=== PATIENT | male | born 1975 | race African-American/Black ===

== ENCOUNTER 2020-03-18 04:25 | Day surgery (SDC) | payer OTHER, SELFPAY ==
[2020-03-18 05:05] LABS: #Basophils 0.1 thou/uL (0.0-0.2); #Eosinphils 0.1 thou/uL (0.0-0.7); #Lymphocytes 2.6 thou/uL (1.20-3.40); #Monocytes 0.8 thou/uL (0.11-0.59); %Basophils 1.5 % (0.0-1.0); %Eosinophils 2.4 % (0.0-10.0); %Lymphocytes 46.6 % (21.0-51.0); %Monocytes 13.4 % (0.0-10.0); %Neutrophils 36.2 % (42.0-75.0); Hemoglobin 16.7 g/dL (14.0-18.0); Mean Corpuscular HGB CONC 33.8 g/dL (32.0-36.0); Mean Corpuscular Hemoglobin 34.3 pg (27.0-31.0); Mean Platelet Volume 8.6 fL (7.4-10.4); Platelet Count 206 thou/uL (130-400); RBC Distribution Width 13.2 % (11.5-14.5); Red Blood Cell (RBC) Count 4.89 mill/uL (4.70-6.10); White Blood Cell (WBC) Count 5.6 thou/uL (4.8-10.8)
[2020-03-18 05:18] LABS: Anion Gap 16 mmol/L (10-20); BUN (Urea Nitrogen) 13 mg/dL (8.9-20.6); Calc. Creatinine Clearance 0 mL/min (70-130); Calcium 9.4 mg/dL (7.8-10.44); Carbon Dioxide 21 mmol/L (22-29); Chloride 103 mmol/L (98-107); Estimated GFR-MDRD Greater than 90; Glucose 97 mg/dL (70-105); Potassium 4.1 mmol/L (3.5-5.1); Sodium 136 mmol/L (136-145)
[2020-03-18] MEDS ORDERED: Midazolam HCl 2 mg/2 ml Vial ONE (05:28)
--- NOTE | 2020-03-18 07:11 | CT ---
CT ABDOMEN AND PELVIS WITH CONTRAST: Date: 03/18/2020 COMPARISON: None. HISTORY: Abdominal pain. No bowel movement for 2 days. Possible foreign body in rectum. TECHNIQUE: Multiple contiguous axial images were obtained in a CT of the abdomen and pelvis with contrast. Sagit levi and coronal reformats were performed. FINDINGS: There is a foreign body in the rectum that appears to represent a vibrator. No free air, free fluid, or stranding changes are seen in the abdomen or pelvis. The small bowel is normal in caliber without significant distention. No significant distention in the more proximal colon is seen. The liver, gallbladder, kidneys, adrenal glands, spleen, and pancreas are unremarkable. Atherosclerotic calcifications are seen in the aorta. No abdominal or pelvic lymphadenopathy are seen . The appendix is normal. The osseous structures, visualized inferior thorax, and abdominal wall soft tissues are unremarkable. IMPRESSION: There is a foreign body in the rectum that appears to represent a vibrator. There is no evidence of b owel obstruction at this time. POS: EAA
--- NOTE | 2020-03-18 07:42 | RAD ---
Exam: One view chest 2 views abdomen FINDINGS: Chest one view: Normal cardiac silhouette. Costophrenic angles are clear Extensive emphysematous changes involving both upper lobes, right greater than left. No pneumothorax or acute osseous abnormalities 2 views abdomen: Radiopaque foreign body projects over the course of the sigmoid colon. No bowel obst ruction. No pneumoperitoneum. No osseous abnormalities IMPRESSION: 1. Sigmoid colon radiopaque foreign body. Refer to abdomen pelvic CT report for further detail. 2. Emphysematous changes in the bilateral upper lobe lung parenchyma.
[2020-03-18 11:10] LABS: SARS-CoV-2 MS2 Positive; SARS-CoV-2 N Gene Negative; SARS-CoV-2 S Gene Negative; SARS-CoV-2 by NAA Not Detected (NotDetected); SARS-CoV-2 orf1ab Negative
[2020-03-18] MEDS ORDERED: Rocuronium Bromide 10 MG/ML (10ML VIAL) ONE (12:21)
[2020-03-18] MEDS ORDERED: Lidocaine 1% PF 5 ML VIAL ONE (12:21)
[2020-03-18] MEDS ORDERED: PROPOFOL 200 MG/20 ML VIAL ONE (12:21)
[2020-03-18] MEDS ORDERED: Ondansetron PF 4 MG/2 ML Vial ONE (12:21)
[2020-03-18] MEDS ORDERED: Dexamethasone 20 MG/5 ML VIAL ONE (12:21)
[2020-03-18] MEDS ORDERED: Fentanyl 100 MCG/2 ML VIAL ONE (13:13)
--- NOTE | 2020-03-18 13:26 | HP ---
CHIEF COMPLAINT: Foreign body in rectum. HISTORY OF PRESENT ILLNESS: This is a 44-year-old male who says that he was having sexual relations with his girlfriend, inserted a vibrator in his bottom and lost control of it, it has been up there for 2 days, it is no longer vibrating. He was unable to extract it. He is passing some gas. He has actually had a bowel movement, but it did not come out. He denies abdominal pain. He did see a little bit of fresh blood on tissue. He denies any nausea or vomiting. PAST MEDICAL HISTORY: COPD. PAST SURGERIES: He had a laparotomy to extract broken glass from the stomach. MEDICATIONS: None. ALLERGIES: NO KNOWN DRUG ALLERGIES. SOCIAL HISTORY: Single. He smokes 2 cigars and 3 cigarettes daily. Social alcohol. FAMILY HISTORY: Noncontributory. PHYSICAL EXAMINATION: VITAL SIGNS: He is afebrile, pulse 79, blood pressure 138/98. GENERAL: He is a thin male, in no apparent distress. HEENT: Unremarkable. LUNGS: Clear. HEART: Regular rate and rhythm. ABDOMEN: Soft, nondistended. He has well-healed surgical scar in the upper midline. There is no tenderness. No palpable masses. DIAGNOSTIC STUDIES: He had a CT scan of the abdomen, showing this mechanical device in his pelvis. ASSESSMENT: Retained rectal foreign body. PLAN: Remove in the operating room as it is not palpable on rectal exam. Job ID: [id number]
[2020-03-18] MEDS ORDERED: SUGAMMADEX SODIUM 500 MG/5 ML VIAL ONE (13:39)
--- NOTE | 2020-03-19 13:02 | OP ---
DATE OF PROCEDURE: 03/18/2020 PREOPERATIVE DIAGNOSIS: Retained rectal foreign body. PROCEDURE PERFORMED: Removal of rectal foreign body. INDICATIONS FOR PROCEDURE: This is a 44-year-old male who during sex had a vibrator inserted in his rectum. He was unable to retrieve it, that was two days ago. They were unable to remove it in the emergency room. CT scan shows to be in the pelvis. FINDINGS: It was palpable transabdominally. Once he was relaxed with anesthesia, it was able to remove it transanally. DESCRIPTION OF PROCEDURE: After informed consent was obtained, the patient was taken to the operating room, given general endotracheal anesthesia, placed in the lithotomy position. Once under anesthesia, I was able to palpate the device transabdominally, was able to push it down towards the anus and then transanally was able to find the end of it, grabbed it and pull it out. There was no evidence of any injury or bleeding. in the OR to allow the anesthesia to dissipate and then will be moving to Recovery. Job ID: [id number]
== END 2020-03-18 16:13 | disposition home or self-care (01) ==
LOC: ERS 04:25 → SDC 12:24
PROVIDERS: ATTEND Surgery
PROC: 0DCQXZZ Extirpation of Matter from Anus, External Approach (ICD-10-PCS; principal; 2020-03-18)
DX: T18.5XXA Foreign body in anus and rectum, initial encounter (principal); J44.9 Chronic obstructive pulmonary disease, unspecified; F17.210 Nicotine dependence, cigarettes, uncomplicated
CPT/HCPCS: 36415; 74022; 74177; 80048; 85025; 87635; 88300; 96374; J1100; J2250; J2405; J2704; J3010; U0003